=== PATIENT | male | born 1945 | race Caucasian/White ===

== ENCOUNTER → 2024-03-16 14:38 | Outpatient (REF) | payer OTHER, SELFPAY | LOC: RAD 14:38 | PROVIDERS: ATTENDING PHYSICIAN Family Medicine | DX: S06.5XAA Traumatic subdural hemorrhage with loss of consciousness status unknown, initial encounter (principal) | CPT/HCPCS: 70450 ==

== ENCOUNTER → 2024-08-19 15:03 | Outpatient (REF) | payer OTHER, SELFPAY | LOC: HWRCS 15:03 | PROVIDERS: ATTENDING PHYSICIAN Nurse Practitioner; FAMILY PHYSICIAN Family Medicine | DX: I35.0 Nonrheumatic aortic (valve) stenosis (principal); I10 Essential (primary) hypertension; R01.1 Cardiac murmur, unspecified | CPT/HCPCS: 93306 ==

== ENCOUNTER 2024-10-18 16:39 | Emergency (ER) | payer OTHER, SELFPAY ==
[2024-10-18 16:45] VITALS: BP 155/82
--- NOTE | 2024-10-18 19:20 | ED.GENMED ---
History of Present Illness
General
Chief Complaint: Head Injury
Source: patient
Exam Limitations: none
Time Seen by Provider: 10/18/24 19:11
History of Present Illness
History of Present Illness:
79yoM with a history of traumatic intracranial bleed in February 2024 presenting with his for evaluation after head injury. Patient was walking in his backyard yesterday and he tripped and fell. He struck his head on the walkway on some
stones. There was no loss of consciousness. He is currently feeling well and denies any headache, dizziness, visual changes, vomiting, neck pain. He spoke with his PCP today who told him to go to the head CT. Patient takes Eliquis. Tetanus
reported to be up-to-date.
Past History
Past History
ED Past Medical History: None
ED Past Surgical History: None
Phy Exam
General Physical Exam
General Presentation: well appearing and no apparent distress
General Skin: warm and dry
General Habitus: normal and elderly
General Mental: alert
ENT Exam
ENT Exam: TM's normal (No hemotympanum) and other (Abrasions noted to forehead. No other external signs of head trauma. No cervical spine tenderness.)
Eye Exam
Eye Exam: PERRL
Neurological Exam
Neurological Exam: alert
Penny Coma Scale
Eye Opening: Spontaneous
Verbal Response: Oriented
Motor Response: Obeys Commands
GCS Total Score: 15
Skin Exam
Skin Exam: normal color and warm/dry
Psychiatric Exam
Psychiatric Exam: normal mood/affect
Course
Orders/Labs/Results
Orders:
Orders
10/18/24 16:42
CT Head W/o Iv Contrast Urgent
Comment:
Reason For Exam: fall on thinners
10/18/24 16:43
CT Cervical Spine W/o Iv Contr Urgent
Comment:
Reason For Exam: fall on thinners
Vital Signs
Initial and Last Documented VS:
Initial Vital Signs
Temp Pulse Resp BP Pulse Ox
98.4 F 74 16 155/82 95
10/18/24 16:45 10/18/24 16:45 10/18/24 16:45 10/18/24 16:45 10/18/24 16:45
Last Documented Vital Signs
Temp Pulse Resp BP Pulse Ox
98.4 F 74 16 155/82 95
10/18/24 16:45 10/18/24 16:45 10/18/24 16:45 10/18/24 16:45 10/18/24 16:45
MDM/Problems Addressed
Differential Diagnosis Includes:
79yoM here after a head injury yesterday. Tripped in his backyard and struck his head. No LOC. Asymptomatic currently. On Eliquis and prior hx of traumatic head bleed. Forehead abrasions noted. Exam otherwise reassuring. Differential diagnosis
includes: closed head injury, fracture, intracranial hemorrhage
CT head and cervical spine obtained which are negative for traumatic injuries. ED return precautions reviewed and patient discharged in stable condition.
*Critical Care Note
Total Time (30-74mins, 75-104mins- exclusive of procedures): Not Applicable
ED Attending Note
-
Portions of this chart may have been created with voice recognition software.� Occasional wrong word or��sound alike� substitutions may have occurred due to the inherent limitations of voice recognition software.
Discharge Plan
Departure
Patient Disposition: Home (Routine Discharge)
Date of Disposition: 10/18/24
Time of Disposition: 19:21
Patient with high blood pressure during this ER visit?: Yes
Discharge Problem:
Closed head injury
Instructions: Head Injury in Adults (DC)
Prescriptions:
No Action
hydrocodone-acetaminophen 1 TABLET tablet
1 tab PO Q4HPRN PRN (Reason: severe pain) Qty: 15 0RF
hydrocodone-acetaminophen 1 EACH tablet
1 ea PO Q6H PRN (Reason: pain) Qty: 15 0RF
Activity Restrictions/Additional Instructions:
Your CT scan was negative for any bleeding or fractures.
Return to the ER with any new or worsening symptoms.
Interventions
Interventions:
*Risk Screen - Suicide Last Done: 10/18/24 16:45
*General Assessment Last Done: 10/18/24 16:45
*Neglect/Abuse Screening Last Done: 10/18/24 19:35
*ED- Fall Risk Assessment Last Done: 10/18/24 19:34
ED- Neurological Assessment Last Done: 10/18/24 19:34
Discharge Date and Time
Print Language: KINYARWANDA
== END 2024-10-18 19:49 | disposition home or self-care (01) ==
LOC: EMR 16:39
PROVIDERS: EMERGENCY PHYSICIAN Emergency Medicine; FAMILY PHYSICIAN Family Medicine
DX: S09.90XA Unspecified injury of head, initial encounter (principal); S00.81XA Abrasion of other part of head, initial encounter; W01.0XXA Fall on same level from slipping, tripping and stumbling without subsequent striking against object, initial encounter; Y93.01 Activity, walking, marching and hiking; Y92.007 Garden or yard of unspecified non-institutional (private) residence as the place of occurrence of the external cause; R03.0 Elevated blood-pressure reading, without diagnosis of hypertension; Z79.01 Long term (current) use of anticoagulants
CPT/HCPCS: 99284; 70450; 72125

== ENCOUNTER 2025-02-09 21:06 | Emergency (ER) | payer OTHER, SELFPAY ==
[2025-02-09 21:10] VITALS: BP 180/107
[2025-02-10] MEDS: ZOFRAN 4 MG IV (00:35)
[2025-02-10] MEDS: DILAUDID 0.5 MG IV ×2 (00:35→02:30)
[2025-02-10 00:53] LABS: Hematocrit 45.4 % (39.0-52.0); Hemoglobin 15.9 g/dL (13.0-18.0); Mean Corp Hgb Conc. 35.0 g/dL (33.0-37.0); Mean Corpuscular Volume 99.1 fL (80.0-94.0); Nucleated Red Blood Cells % 0 % (-); Platelet Count 145 10^3/uL (130-400); Red Cell Dist. Width 12.7 % (11.5-14.5)
[2025-02-10 01:00] VITALS: BP 152/90
[2025-02-10 01:18] LABS: ALT (SGPT) 27 U/L (0-50); AST (SGOT) 30 U/L (17-59); Albumin 4.1 g/dl (3.5-5.0); Alkaline Phosphatase 82 U/L (38-126); Blood Urea Nitrogen 15 mg/dl (9-20); Calcium 9.1 mg/dl (8.4-10.2); Carbon Dioxide 26 mmol/L (22-30); Chloride 107 mmol/L (98-107); Glucose 99 mg/dl (70-99); Lipase 38 U/L (23-300); Potassium 4.4 mmol/L (3.5-5.1); Sodium 139 mmol/L (135-145); Total Protein 6.8 g/dl (6.3-8.2); eGFR > 60.00
--- NOTE | 2025-02-10 02:10 | ED.GENMED ---
History of Present Illness
General
Chief Complaint: Fall
Source: patient and spouse
Exam Limitations: none
Time Seen by Provider: 02/10/25 00:02
Nursing documentation reviewed up to this point in time: agreed with
History of Present Illness
History of Present Illness:
The patient is an 79-year-old male with a history of atrial fibrillation currently on Apixaban (Eliquis). He presented after a mechanical fall today onto a concrete surface, resulting in pain primarily localized to the right side, without head
trauma. He reports not having eaten since this afternoon due to nausea, though no vomiting has occurred. Pain exacerbates upon deep inhalation and ambulation, causing significant discomfort and inability to walk unaided. He describes nausea,
worsened by pain, as a significant symptom and hasn't noticed dizziness, lightheadedness, or blood in the urine. Previously, the patient had a hospital encounter in October for a fall causing head trauma. CT of the head unremarkable at that time. He
has remote history of intracranial hemorrhage February 2024 after a fall. He took 1 Tylenol without relief.
Past History
Past History
ED Past Medical History: Arrthythmia (Paroxysmal atrial fibrillation), HTN, Hypercholesterolemia, Psychiatric and Other (Traumatic intracranial hemorrhage February 2024. Kidney stones)
ED Past Surgical History: Appendectomy and Orthopedic
Social History
Tobacco: Non-smoker
Alcohol: None
Personal:
Living: with family
Employment: Retired
Family History
Family History: Other (Noncontributory)
Phy Exam
Physical Exam
Physical Exam:
TRAUMA EXAM:
VITAL SIGNS: Vital signs reviewed, cooperative
DISTRESS: Appears mildly to moderately uncomfortable. Sitting upright on edge of stretcher. is accompanying.
EYES: Pupils reactive, no orbital trauma
NOSE: No deformity or epistaxis
FACE AND SCALP: No scalp or facial trauma, external canals no blood
NECK: Supple nontender
BACK: Back nontender, pelvis stable to compression
RESPIRATORY: No distress, breath sounds normal, moderate tenderness right lateral to posterior chest wall around rib 8-10 region. No crepitus.
CARDIAC: No murmur, pulses equal and strong
ABDOMEN: Soft , nondistended mild tenderness right upper quadrant as well as right lateral to posterior flank region, no ecchymosis, bowel sounds normal
SKIN: Skin intact no bleeding, color normal
EXTREMITIES: Nontender
NEUROLOGICAL: Alert, oriented, no motor deficits
PSYCH: Mood affect normal
Course
Orders/Labs/Results
Orders:
Orders
02/09/25 21:12
Ribs, Right 3 View W/PA Chest [CR Ribs-right 3 Vw W/pa Chest*] Urgent
Comment:
Reason For Exam: fall/injury
02/10/25 00:21
HYDROmorphone [Dilaudid] 0.5 mg IV NOW STA
Ondansetron Injectable [Zofran] 4 mg IV NOW STA
02/10/25 00:22
CT Abd/pel W Iv Cont (trauma) Urgent
Comment:
Reason For Exam: fall, right flank pain, 8th/9th rib fx's on R
CT Head W/o Iv Contrast Urgent
Comment:
Reason For Exam: fall, on eliquis. prior hx ICH
02/10/25 00:24
Urinalysis Reflex To Culture Urgent
Date Specimen was Collected: 02/10/25
Time Specimen was Collected: 02:30
02/10/25 00:34
Complete Blood Count/With Diff Urgent
Comprehensive Metabolic Panel Urgent
Lipase Urgent
02/10/25 02:29
HYDROmorphone [Dilaudid] 0.5 mg .ROUTE .STK-MED ONE
02/10/25 02:30
HYDROmorphone [Dilaudid] 0.5 mg IV NOW STA
02/10/25 03:25
Ice Pack-Treatment DIRECTED
Location: RIGHT FLANK
Hydrocodone 5/APAP 325 [[place] 5/325] 1 tablet PO NOW STA
Abnormal Lab Results
02/10/25
00:34
RBC 4.58 L 10^6/uL
(4.70-6.10)
MCV 99.1 H fL
(80.0-94.0)
MCH 34.7 H pg
(27.0-31.0)
Abs Immat Gran (auto) 0.1 H 10^3/uL
(0-0.05)
Absolute Neuts (auto) 7.5 H 10^3/uL
(1.4-6.5)
Absolute Lymphs (auto) 0.9 L 10^3/uL
(1.2-3.4)
Neutrophils % 82.3 H %
(42.2-75.2)
Lymphocytes % 9.5 L %
(20.5-51.1)
Creatinine 0.6 L mg/dL
(0.7-1.3)
Total Bilirubin 1.9 H mg/dl
(0.2-1.3)
02/10/25 00:34
02/10/25 00:34
Vital Signs
Initial and Last Documented VS:
Initial Vital Signs
Temp Pulse Resp BP Pulse Ox
98.7 F 89 15 180/107 96
02/09/25 21:10 02/09/25 21:10 02/09/25 21:10 02/09/25 21:10 02/09/25 21:10
Last Documented Vital Signs
Temp Pulse Resp BP Pulse Ox
98.7 F 79 21 151/90 90
02/09/25 21:10 02/10/25 03:00 02/10/25 03:00 02/10/25 03:00 02/10/25 03:00
MDM/Problems Addressed
Differential Diagnosis Includes:
The Differential Diagnosis includes, in no particular order and is not limited to:
- Rib fractures.
- Soft tissue contusion.
- Internal organ injury (e.g., kidney, liver).
- Intracranial bleed.
- Pneumothorax.
- Hemothorax.
- Musculoskeletal pain.
- Gastrointestinal issues contributing to nausea.
- Medication side effects.
- Balance disorder due to atrial fibrillation.
MDM/Problems Addressed:
Acute Problems:
- Rib fractures.
- Pain following a fall.
- Nausea.
Chronic Problems:
- Atrial Fibrillation. Chronically maintained on Eliquis.
- Prior history of traumatic intracranial hemorrhage February 2024
Chest x-ray/right rib series shows minimally displaced posterior lateral right 8th and 9th ribs. No pneumothorax nor effusion.
Due to lower rib fractures, nausea, concern for intra-abdominal traumatic injury. As patient chronically maintained on Eliquis, advanced age, concern for intracranial injury.
Will check labs, will check CT abdomen pelvis as well as CT of the head.
Will medicate for pain with an IV dose of Dilaudid.
*Radiology
Radiology exam reviewed: radiology read reviewed
*Pulse Oximetry
SaO2: 90
Oxygen Mode of Delivery: Room air
Patient hypoxic: no
*Critical Care Note
Total Time (30-74mins, 75-104mins- exclusive of procedures): Not Applicable
Update Note
Update Note:
03:30
Patient is much more comfortable after an IV dose of Dilaudid x 2.
CAT scan of the head is unremarkable as is CT abdomen pelvis. No evidence of traumatic findings.
Will initiate a course of Vicodin for as needed pain. Will add local ice.
Discussed supportive measures, sleeping in a recliner over the next several days to week. Local ice over the next day or 2. Local splinting when moving, coughing etc. otherwise recommend avoiding rib belts, wrapping his thorax.
Discussed importance of fiber supplement, stool softener while taking narcotic pain medication and also discussed importance of ambulation and safety while on narcotic pain medication.
Will plan for discharge to home with prompt follow-up with PCP.
ED Attending Note
-
Portions of this chart may have been created with voice recognition software.� Occasional wrong word or��sound alike� substitutions may have occurred due to the inherent limitations of voice recognition software.
Discharge Plan
Departure
Patient Disposition: Home (Routine Discharge)
Date of Disposition: 02/10/25
Time of Disposition: 03:41
Patient with high blood pressure during this ER visit?: No
Condition: Good
Discharge Problem:
Right 8th and 9th rib fractures
Instructions: Preventing falls in adults, Rib fracture or bruised rib - ED (DC)
Prescriptions:
New
hydrocodone-acetaminophen 5-300 mg tablet
1 tab PO Q8H PRN (Reason: Pain) Qty: 10 0RF
No Action
hydrocodone-acetaminophen 1 TABLET tablet
1 tab PO Q4HPRN PRN (Reason: severe pain) Qty: 15 0RF
hydrocodone-acetaminophen 1 EACH tablet
1 ea PO Q6H PRN (Reason: pain) Qty: 15 0RF
Referrals:
Dennis Amaro MD [Family Provider, Family Practice] - Call in 1-3 days for appt
Interventions
Interventions:
*Risk Screen - Suicide Last Done: 02/09/25 21:10
*General Assessment Last Done: 02/09/25 21:10
*Neglect/Abuse Screening Last Done: 02/09/25 21:10
*ED COVID-19 Vaccine History Last Done: 02/09/25 21:10
ED-Musculoskeletal Assessment Last Done: 02/09/25 23:30
ED- Neurological Assessment Last Done: 02/09/25 23:30
ED-Skin Assessment Last Done: 02/09/25 23:30
Discharge Date and Time
Print Language: ROMANIAN
[2025-02-10 02:24] VITALS: BP 154/96
[2025-02-10 03:00] VITALS: BP 151/90
[2025-02-10] MEDS: NORCO 5/325 1 TABLET PO (03:45)
[2025-02-10 04:00] VITALS: BP 127/74
[2025-02-10 04:05] LABS: Urine Character Clear (Clear)
[2025-02-10 04:46] LABS: Urine Squamous Cell >30 /LPF (Few)
[2025-02-10 05:07] LABS: Urine White Cell 0-2 /HPF (0-5)
== END 2025-02-10 05:42 | disposition home or self-care (01) ==
LOC: EMR 21:06
PROVIDERS: EMERGENCY PHYSICIAN Emergency Medicine; FAMILY PHYSICIAN Family Medicine
DX: S22.41XA Multiple fractures of ribs, right side, initial encounter for closed fracture (principal); R11.0 Nausea; R26.2 Difficulty in walking, not elsewhere classified; R26.89 Other abnormalities of gait and mobility; W18.39XA Other fall on same level, initial encounter; I48.0 Paroxysmal atrial fibrillation; I10 Essential (primary) hypertension; E78.00 Pure hypercholesterolemia, unspecified; F32.A Depression, unspecified; Z79.01 Long term (current) use of anticoagulants; Z87.820 Personal history of traumatic brain injury; Z87.442 Personal history of urinary calculi
CPT/HCPCS: 99285; 96374; 96375; 96376; 70450; 71101; 74177; 80053; 81003; 81015; 83690; 85025; Q9967